=== PATIENT | female | born 1990 | race Caucasian/White ===

== ENCOUNTER 2021-12-01 11:16 | Outpatient (CLI) | payer OTHER, SELFPAY ==
[2021-12-05 20:28] LABS: Progesterone, HPLC-MS/MS 9.38 ng/mL
== END 2021-12-01 11:17 | disposition home or self-care (01) ==
LOC: FRMREF 14:39
PROVIDERS: PCP Family Medicine; Visit Provider Obstetrics & Gynecology
DX: N97.8 Female infertility of other origin (principal)
CPT/HCPCS: 84144